=== PATIENT | male | born 1985 | race Caucasian/White ===

== ENCOUNTER 2018-12-20 19:13 | Emergency (ER) | payer OTHER ==
[~2018-12-20] VITALS: Ht 188 cm; Wt 113.4 kg
[2018-12-20 19:36] VITALS: BP 144/77
--- NOTE | 2018-12-20 19:39 | NUR ---
TO LOBBY A/W JOSELIN, BAIRON FAITH ERMD NOTED
--- NOTE | 2018-12-20 19:47 | NUR ---
PT TAKEN TO BED 6
--- NOTE | 2018-12-20 20:00 | NUR ---
33/M PRESENTS TO ED WITH FAMILY/FRIEND, C/O 0.2CM X 2CM LACERATION, BLEEDING CONTROLLED; S/P FALL WHILE TRYING TO GET OUT OF POOL WHILE CLEANING. DENIES LOC, N/V. AOX4, GCS 15, AMBULATORY, RR EVEN AND UNLABORED. DENIES HX, RX OR OTC
--- NOTE | 2018-12-20 20:17 | NUR ---
Dr. Loving evaluating patient at bedside.
[2018-12-20 20:38] VITALS: BP 129/76
--- NOTE | 2018-12-20 20:38 | NUR ---
Patient discharged with v/s stable. Written and verbal after care instructions given and explained. Patient verbalized understanding. Ambulatory with steady gait. All questions addressed prior to discharge. Advised to follow up with PMD.
== END 2018-12-20 20:38 | disposition home or self-care (01) ==
LOC: MED 19:13
DX: S01.111A Laceration without foreign body of right eyelid and periocular area, initial encounter (principal); W01.0XXA Fall on same level from slipping, tripping and stumbling without subsequent striking against object, initial encounter; Y93.H9 Activity, other involving exterior property and land maintenance, building and construction; Y99.8 Other external cause status; Y92.89 Other specified places as the place of occurrence of the external cause
CPT/HCPCS: 90471; 90715; 99283